=== PATIENT | male | born 1985 | race Two or more races ===

== ENCOUNTER 2023-09-06 11:57 | Emergency (ER) | payer OTHER ==
[~2023-09-06] VITALS: Ht 180.3 cm; Wt 104.9 kg
[2023-09-06 14:04] VITALS: BP 129/75; PULSE 61; RESP 61; TEMP 99; O2SAT 94
[2023-09-06] MEDS ORDERED: IBUP-1456 PO (14:30)
[2023-09-06] MEDS ORDERED: BACL10TA PO (14:30)
== END 2023-09-06 14:37 | disposition home or self-care (01) ==
LOC: ER 11:57
DX: S39.012A Strain of muscle, fascia and tendon of lower back, initial encounter (principal); S63.501A Unspecified sprain of right wrist, initial encounter; W18.09XA Striking against other object with subsequent fall, initial encounter; Y93.89 Activity, other specified; Y92.89 Other specified places as the place of occurrence of the external cause; Y99.8 Other external cause status
CPT/HCPCS: 72100; 73110